=== PATIENT | male | born 1950 | race Caucasian/White ===

== ENCOUNTER → 2024-04-03 | Outpatient (CLI) | payer BC, MEDICARE ==
--- NOTE | 2024-04-23 11:24 | PE ---
Patient: Idris Ramos Ordering Physician: Unknown, Unknown ID: [id number] Phone, Pager: Phone: N /A Pager: N/A : 1950 Age/Gender: 73Y, M Primary Location: N/A Procedure: PET CT fusion skull to thigh Study Date: 04/03/2024 9:12:00 AM EXAMINATION TYPE: PET CT fusion skull to thigh DATE OF EXAM: 04/06/2024 CLINICAL INDICATION: Solid pulmonary nodule TECHNIQUE: Following the intravenous administration of 10.8 mCi of F-18 FDG, whole body images are performed from the skull base to the midthigh. Images are reviewed on the computer in the coronal, a xial, and sagittal planes. Reconstructed rotating images are created on independent workstation and reviewed on the computer. A non-contrast CT is performed in conjunction with the PET scan. Glucose level 86 mg/dL CT DLP: 335 mGycm, Automated exposure control for dose reduction was used. COMPARISON: CT None, PET/CT None, MRI: None FINDINGS: Mediastinal SUV mean is 1.4. Hepatic parenchyma SUV mean is 2.0. SKULL BASE AND NECK: No suspicious radiotracer activity. CHEST, MEDIASTINUM, AND HILAR REGION: * Cavitary lesion in the right upper lobe near the periphery with surrounding suspected atelectasis measuring 32 mm. Max SUV 6.8; * Mild uptake near the right pulmonary hilum max SUV 2.1 ABDOMEN AND PELVIS: No suspicious radiotracer activity. MUSCULOSKELETAL STRUCTURES: No suspicious radiotracer activity. OTHER CT: There is atherosclerosis of the arterial vasculature including the coronary arteries. Funes otomy wires. Renal sinus calcifications felt to be vascular in etiology. Stent grafts in the abdomen involving the aorta and bilateral iliac arteries and the inferior mesenteric artery. Scattered coloni c diverticulosis. Right hip arthroplasty appears intact. IMPRESSION: Cavitary lesion in the right upper lung possibly representing underlying neoplastic processes alterna tively could represent necrotizing pneumonia. Correlate clinically. Consider surveillance possibly en doscopic tissue sampling.
== END | disposition home or self-care (01) ==
LOC: RADPETMAIN 07:55
PROVIDERS: ATTEND Family Medicine
DX: R91.1 Solitary pulmonary nodule (principal)
CPT/HCPCS: 78815; A9552